=== PATIENT | female | born 1980 | race Hispanic/Latino ===

== ENCOUNTER 2022-05-08 06:28 | Day surgery (SDC) | payer BC ==
[2022-05-07 14:52] LABS: Absolute Lymphocytes (CBC) 3.2 K/uL (0.7-4.9); Hematocrit 41.1 % (36.0-45.0); Lymphocytes % 35.9 % (15.3-44.8); MCV 93.2 fL (80-100); MPV 8.5 fL (7.6-11.3); RBC Red Blood Cell Count 4.41 M/uL (3.86-4.86)
[2022-05-07 15:13] LABS: Specific Gravity 1.027 (1.005-1.030)
[2022-05-07 15:16] LABS: SARS-CoV-2 Antigen Rapid Res Negative (Negative)
[2022-05-07 15:18] LABS: Bilirubin Direct 0.2 mg/dL (0-0.2); Bilirubin Total 0.8 mg/dL (0.2-1.0); Potassium 3.6 mmol/L (3.5-5.1); Protein, Total 8.1 g/dL (6.4-8.2)
[2022-05-08] MEDS ORDERED: propofoL 200 MG/20 ML VIAL IV ONE (06:55)
[2022-05-08] MEDS ORDERED: FENTANYL CITR 100 MCG/2 ML ONE ×2 (06:55→09:01)
[2022-05-08] MEDS ORDERED: LIDOCAINE 1% MPF 5 ML VIAL ONE (06:55)
[2022-05-08] MEDS ORDERED: KETOROLAC 30 MG/ML INJ ONE (06:55)
[2022-05-08] MEDS ORDERED: dexAMETHasone 10 MG/ML VIAL ONE (06:55)
[2022-05-08] MEDS ORDERED: ROCURONIUM 50 MG/5 ML VIAL IV ONE (06:55)
[2022-05-08] MEDS ORDERED: ONDANSETRON 4 MG/2 ML VIAL ONE (06:55)
[2022-05-08] MEDS ORDERED: MIDAZOLAM HCL 2 MG/2 ML INJ ONE (06:55)
[2022-05-08] MEDS ORDERED: CEFOXITIN SODIUM 1 GM/VIAL ONE (07:15)
[2022-05-08] MEDS ORDERED: Ringers Lactate 1,000 ML IV ONE (07:15)
--- NOTE | 2022-05-08 08:23 | P.BOP ---
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
[2022-05-08] MEDS: HYDROMORPHONE HCL 1 MG/ML INJ ONE ×2 (08:40→08:45)
[2022-05-08] MEDS ORDERED: MEPERIDINE HCL 25 MG/ML SYR ONE (08:46)
[2022-05-08] MEDS ORDERED: DIPHENHYDRAMINE 50 MG/ML VIAL ONE ×3 (09:11→09:52)
[2022-05-08 10:31] VITALS: BP 96/62; TEMP 97.8; O2SAT 100
== END 2022-05-08 10:50 | disposition home or self-care (01) ==
LOC: OR 06:28
PROVIDERS: ATTEND Surgery
PROC: 0FT44ZZ Resection of Gallbladder, Percutaneous Endoscopic Approach (ICD-10-PCS; principal; 2022-05-08 07:30)
DX: K80.10 Calculus of gallbladder with chronic cholecystitis without obstruction (principal); Z20.822 Contact with and (suspected) exposure to COVID-19
CPT/HCPCS: 36415; 80048; 80076; 81025; 82150; 83690; 85025; 87811; 88304; J0694; J1100; J1170; J1200; J2001; J2175; J2250; J2405; J2704; J3010; J7120